=== PATIENT | male | born 1990 | race Caucasian/White ===

== ENCOUNTER 2025-03-20 14:37 | Emergency (ER) | payer SELFPAY ==
--- NOTE | 2025-03-20 14:39 | XRR_ITS ---
PROCEDURE INFORMATION: Exam: XR Left Foot Exam date and time: 03/20/2025 2:57 PM Age: 35 years old Clinical indication: Injury or trauma; Wound; Foot; Left; Foreign body involvement not specified; Injury with open lac nailbed of lt great toe x 2 days ago; Increased pain/swelling/purulent green drainage TECHNIQUE: Imaging protocol: Radiologic exam of the left foot. Views: 3 or more views. COMPARISON: No relevant prior studies available. FINDINGS: Bones/joints: Normal. Soft tissues: Normal. XR/XR foot LT min 3V* [id number] IMPRESSION: No acute findings.
[2025-03-20 14:47] VITALS: BP 169/99; PULSE 77; RESP 14; TEMP 36.6; O2SAT 97; BMI 34.8
--- NOTE | 2025-03-20 15:23 | ED_ITS ---
HPI - Extremity Problem General: Chief complaint: Extremity Injury, Lower Stated complaint: left big toe injury Time Seen by Provider: 03/20/25 15:13 Source: patient Mode of arrival: ambulatory Limitations: no limitations History of Present Illness: 35-year-old male states that he had a la wnmower deck he had pulled over his left great toe and avulsed his toenail states he had to pull the rest of the toenail off from his big toe. He states that he is not up-to-date on his tetanus he is really concerned he had some slight yellow discharge from it this morning he denies any severe pain he is kept it covered with a gauze he denies any fevers. Associated symptoms: Deny chest pain, fever(s) or rash Related Data Previous Rx's ?Medication ?Instructions ?Recorded sulfamethoxazole 800 1 tab PO BID 10 days #20 tab s 03/20/25 mg-trimethoprim 160 mg tablet (Bactrim DS) Allergies Allergy/AdvReac Type Severity Reaction Status Date / Time poppy seed Allergy Unknown Uncoded 03/20/25 14:54 Review of Systems Const: Denies: fever(s), chills, body aches or change in appetite ENMT: Denies: throat pain or dental pain Card: Denies: chest pain Resp: Denies: dyspnea GI: Denies: abdominal pain, nausea, vomiting or diarrhea Musc: Denies: neck pain or back pain Skin/Breast: Denies: rash Neuro: Denies: headache(s) Physical Exam Const: COMMON NORMALS: no acute distress, patient oriented x3 and healthy appearing HENMT: COMMON NORMALS: normocephalic and atraumatic HEAD & SCALP: normocephalic and atraumatic Eye: COMMON NORMALS: conjunctivae normal CONJUNCTIVA: Yes conjunctivae normal Neck/C-Spine: COMMON NORMALS: full ROM and supple Chest: COMMONS NORMALS: normal inspection of the chest Resp: COMMON NORMALS: normal respiratory effort Cardio: COMMON NORMALS: regular rate RATE: regular rate Extremity: COMMON NORMALS: full ROM NARRATIVE EXTREMITY EXAM: Avulsion noted to left great toenail no erythema or drainage at this time Neuro: COMMON NORMALS: patient oriented x3, moves all extremities and no focal motor deficits Psych: COMMON NORMALS: mental status grossly normal, Normal thought process present and cooperative THOUGHT PROCESS: Normal thought process present Skin: COMMON NORMALS: no rashes or lesions noted and no wounds GENERAL SKIN EXAM: no rashes or lesions noted Course Vital Signs: Vital signs: Vital Signs Temperature 98 F 03/20/25 14:47 Pulse Rate 77 03/20/25 14:47 Respiratory Rate 14 03/20/25 14:47 Blood Pressure 169/99 03/20/25 14:47 Pulse Oximetry 97 03/20/25 14:47 MDM - Extremity (Nontraumatic) Medical Decision Making Patient presents with a complaint great toenail avulsion on the left we will place him on antibiotics we will get him follow-up with podiatry he is return if worsening All radiology interpretation(s) finalized by discharge Discharge Plan Discharge Patient Disposition: Home Clinical Impression: Avulsion of toenail of left foot Condition: Stable Prescriptions: New sulfamethoxazole-trimethoprim [Bactrim DS] 800-160 mg tablet 1 tab PO BID 10 Days Qty: 20 0RF Discharge Orders: Discharge ED (Routine); Ordered 03/20/25 Ordered By: Kasey Perez Referrals: Musa Hendrickson DPM [Physician] - 4-7 days Discharge Diet: Advance as tolerated Discharge Activity: Resume usual activity Patient Instructions: Nail Avulsion (ED) Print Language: Welsh Coding Level of Care Code ED [facility] Room Attendant for Mariya Chavarria
[2025-03-20] MEDS: tetanus-dipt-pertussis 0.5 mL SDV IM (15:33)
[2025-03-20] MEDS: sulfamethoxazole-trimeth DS 160-800 mg Tablet 1 TAB PO (15:34)
[2025-03-20 15:40] VITALS: BP 153/99; PULSE 61; O2SAT 96
== END 2025-03-20 15:41 | disposition home or self-care (01) ==
PROVIDERS: Emergency Provider Emergency Medicine
DX: S91.202A Unspecified open wound of left great toe with damage to nail, initial encounter (principal); X58.XXXA Exposure to other specified factors, initial encounter; Z23 Encounter for immunization
CPT/HCPCS: 73630; 90471; 90715; 99283; J9999